=== PATIENT | male | born 1995 | race Caucasian/White ===

== ENCOUNTER 2019-08-27 09:40 | Emergency (ER) | payer OTHER ==
[2019-08-27 10:17] VITALS: BP 114/47; PULSE 52; TEMP 98; BMI 23.0
[2019-08-27] MEDS ORDERED: KETOROLAC TROMETHAMINE 30 MG/1 ML VIAL IM ONE (11:44)
[2019-08-27] MEDS ORDERED: KETOROLAC TROMETHAMINE 30 MG/1 ML VIAL ONE (11:48)
--- NOTE | 2019-08-27 13:48 | PDOC ---
History of Present Illness - General Chief Complaint: Pain Stated Complaint: RT. KNEE PAIN Time Seen by Provider: 08/27/19 11:07 History Source: Patient Exam Limitations: No Limitations - History of Present Illness Initial Comments: 08/27/19 13:44 23-year-old Swedish-speaking male denies past medical history presents complaining of right knee pain for approximately 2 weeks worsening yesterday. Patient was at work and climbed up a tower then felt worsening pain as he came down from the tower. Denies direct knee injury, giving out of the knee, fever, chills, calf pain or any other complaint. Took ibuprofen 200 mg last night for pain. ROS: GENERAL/CONSTITUTIONAL: No fever, chills, weakness, dizziness HEAD, EYES, EARS, NOSE AND THROAT: No changes in vision, No ear pain or discharge, No sore throat CARDIOVASCULAR: No chest pain RESPIRATORY: No shortness of breath or cough GASTROINTESTINAL: No pain, nausea, vomiting, diarrhea or constipation GENITOURINARY: No dysuria MUSCULOSKELETAL: Right knee pain, no neck or back pain SKIN: No rash NEUROLOGIC: No headache, vertigo, loss of consciousness, or loss of sensation PE: GENERAL: well-appearing, NAD HEAD: NCAT EYES: Pupils equal, round and reactive to light, sclera anicteric, conjunctiva clear ENT: pharynx: no erythema, no exudate, uvula midline NECK: supple CHEST: nontender RESP: clear, no w/r/r CARDIO: rrr, no m/g/r ABD: +BS, soft, nontender, non distended BACK: no midline spinal ttp, no CVAT EXTREMITIES: Right knee - no bony tenderness, no swelling noted, no pain behind the knee, no crepitus, no laxity, normal range of motion, no edema NEUROLOGICAL: Normal speech, normal gait SKIN: Warm, Dry Is this a multiple visit Asthma Patient?: No Past History - Past Medical History Allergies/Adverse Reactions: Allergies Allergy/AdvReac Type Severity Reaction Status Date / Time No Known Allergies Allergy Verified 08/27/19 10:13 - Psycho Social/Smoking Cessation Hx Smoking History: Never smoked Have you smoked in the past 12 months: No Hx Alcohol Use: No Drug/Substance Use Hx: No *Physical Exam - Vital Signs Last Vital Signs Temp Pulse Resp BP Pulse Ox 98 F 52 L 18 114/47 L 100 08/27/19 10:13 08/27/19 10:13 08/27/19 10:13 08/27/19 10:13 08/27/19 10:13 ED Treatment Course - RADIOLOGY Radiology Studies Ordered: Category Date Time Status KNEE 3 POS-RIGHT [RAD] Stat Radiology 08/27/19 11:44 Taken - Medications Given in the ED: ED Medications Discontinued Medications Generic Name Dose Route Start Last Admin Trade Name Vlad PRN Reason Stop Dose Admin Ketorolac Tromethamine 30 mg 08/27/19 11:44 08/27/19 11:51 Toradol Injection - IM 08/27/19 11:45 30 mg ONCE ONE Administration Medical Decision Making - Medical Decision Making 08/27/19 13:46 23-year-old male without any past medical history presenting planing of right knee pain for 2 to 3 weeks worsening yesterday. Denies direct trauma or any other injuries. Right knee x-ray normal Toradol 30 mg IM x1 Stable for discharge Advised follow-up with orthopedics Dr. Vj Saldaña [phone] Miller wrap applied to right knee 08/27/19 13:58 Discharge - Discharge Information Problems reviewed: Yes Clinical Impression/Diagnosis: Knee pain Qualifiers: Chronicity: acute Laterality: right Qualified Code(s): M25.561 - Pain in right knee Condition: Stable Disposition: HOME - Admission No - Follow up/Referral Referrals: Vj Saldaña DO [Staff Physician] - - Patient Discharge Instructions Additional Instructions: Take ibuprofen 600 mg every 6 hours as needed for pain Follow-up with Vj Sidhu [phone] orthopedics within 3 to 5 days Note for work provided Return precautions discussed - Post Discharge Activity Work/Back to School Note: Back to Work
== END 2019-08-27 14:07 | disposition home or self-care (01) ==
LOC: JERFT 09:40
PROC: 3E0233Z Introduction of Anti-inflammatory into Muscle, Percutaneous Approach (ICD-10-PCS; principal; 2019-08-27)
DX: M25.561 Pain in right knee (principal)
CPT/HCPCS: 73562-TC-RT-FY; 96372; 99281-25